=== PATIENT | male | born 1935 | race Caucasian/White ===

== ENCOUNTER → 2016-11-06 | Outpatient (CLI) | payer MEDICARE, OTHER ==
[2016-11-06 17:21] LABS: ANION GAP 12 (5-19); BLOOD UREA NITROGEN 38 mg/dL (7-20); CALCIUM 10.5 mg/dL (8.4-10.2); CARBON DIOXIDE 24 mmol/L (22-30); CHLORIDE 106 mmol/L (98-107); CREATININE RESULT 1.72 mg/dL (0.52-1.25); GLUCOSE 92 mg/dL (75-110); POTASSIUM 4.8 mmol/L (3.6-5.0)
== END ==
LOC: OD 15:50
PROVIDERS: ATTEND Internal Medicine Nephrology
DX: N18.3 Chronic kidney disease, stage 3 (moderate) (principal); E87.5 Hyperkalemia; I50.9 Heart failure, unspecified; E11.9 Type 2 diabetes mellitus without complications
CPT/HCPCS: 36415; 80048

== ENCOUNTER → 2016-11-28 | Outpatient (CLI) | payer MEDICARE, OTHER ==
[2016-11-28 17:35] LABS: ANION GAP 10 (5-19); BLOOD UREA NITROGEN 32 mg/dL (7-20); CALCIUM 10.5 mg/dL (8.4-10.2); CARBON DIOXIDE 25 mmol/L (22-30); CHLORIDE 106 mmol/L (98-107); CREATININE RESULT 1.61 mg/dL (0.52-1.25); GLUCOSE 76 mg/dL (75-110); POTASSIUM 5.3 mmol/L (3.6-5.0); SODIUM 141.3 mmol/L (137-145)
== END ==
LOC: OD 15:52
PROVIDERS: ATTEND Internal Medicine Nephrology
DX: N18.3 Chronic kidney disease, stage 3 (moderate) (principal); E11.9 Type 2 diabetes mellitus without complications; E87.5 Hyperkalemia
CPT/HCPCS: 36415; 80048

== ENCOUNTER → 2017-01-23 | Outpatient (CLI) | payer MEDICARE, OTHER ==
[2017-01-23 16:31] LABS: HEMOGLOBIN 11.8 g/dL (13.5-17.0); HGB HCT DIFFERENCE 0.4; MEAN CORPUSCULAR HGB CONC 33.6 g/dL (32.0-36.0); MEAN CORPUSCULAR VOLUME 95 fl (80-97); RED BLOOD COUNT 3.68 10^6/uL (4.35-5.55); RED CELL DISTRIBUTION WIDTH 15.8 % (11.5-14.0); WHITE BLOOD COUNT 3.9 10^3/uL (4.0-10.5)
[2017-01-23 16:57] LABS: ANION GAP 14 (5-19); BLOOD UREA NITROGEN 38 mg/dL (7-20); CALCIUM 10.2 mg/dL (8.4-10.2); CARBON DIOXIDE 21 mmol/L (22-30); CHLORIDE 105 mmol/L (98-107); CREATININE RESULT 1.43 mg/dL (0.52-1.25); GLUCOSE 203 mg/dL (75-110); POTASSIUM 4.7 mmol/L (3.6-5.0); SODIUM 139.8 mmol/L (137-145)
== END ==
LOC: OD 15:22
PROVIDERS: ATTEND Internal Medicine Nephrology
DX: E11.22 Type 2 diabetes mellitus with diabetic chronic kidney disease (principal); N18.3 Chronic kidney disease, stage 3 (moderate); E87.5 Hyperkalemia
CPT/HCPCS: 36415; 80048; 85027

== ENCOUNTER → 2017-04-24 | Outpatient (CLI) | payer MEDICARE, OTHER ==
[2017-04-24 18:31] LABS: HEMATOCRIT 35.9 % (37.9-51.0); HEMOGLOBIN 11.7 g/dL (13.5-17.0); HGB HCT DIFFERENCE -0.8; MEAN CORPUSCULAR HEMOGLOBIN 31.6 pg (27.0-33.4); MEAN CORPUSCULAR HGB CONC 32.6 g/dL (32.0-36.0); MEAN CORPUSCULAR VOLUME 97 fl (80-97); RED CELL DISTRIBUTION WIDTH 15.2 % (11.5-14.0); WHITE BLOOD COUNT 3.8 10^3/uL (4.0-10.5)
[2017-04-24 18:55] LABS: ANION GAP 13 (5-19); BLOOD UREA NITROGEN 34 mg/dL (7-20); CARBON DIOXIDE 23 mmol/L (22-30); CHLORIDE 105 mmol/L (98-107); CREATININE RESULT 1.48 mg/dL (0.52-1.25); GLUCOSE 94 mg/dL (75-110); POTASSIUM 5.1 mmol/L (3.6-5.0); SODIUM 140.5 mmol/L (137-145)
== END ==
LOC: OD 16:13
PROVIDERS: ATTEND Internal Medicine Nephrology
DX: I50.9 Heart failure, unspecified (principal); E87.5 Hyperkalemia; E11.9 Type 2 diabetes mellitus without complications; I10 Essential (primary) hypertension
CPT/HCPCS: 36415; 80048; 85027

== ENCOUNTER → 2017-08-21 | Outpatient (CLI) | payer MEDICARE, OTHER ==
[2017-08-21 09:22] LABS: HEMATOCRIT 35.9 % (37.9-51.0); HEMOGLOBIN 12.3 g/dL (13.5-17.0); MEAN CORPUSCULAR HEMOGLOBIN 32.1 pg (27.0-33.4); MEAN CORPUSCULAR HGB CONC 34.1 g/dL (32.0-36.0); MEAN CORPUSCULAR VOLUME 94 fl (80-97); RED BLOOD COUNT 3.82 10^6/uL (4.35-5.55); RED CELL DISTRIBUTION WIDTH 15.6 % (11.5-14.0); WHITE BLOOD COUNT 3.1 10^3/uL (4.0-10.5)
[2017-08-21 09:46] LABS: ANION GAP 13 (5-19); BLOOD UREA NITROGEN 27 mg/dL (7-20); CALCIUM 10.2 mg/dL (8.4-10.2); CARBON DIOXIDE 26 mmol/L (22-30); CHLORIDE 105 mmol/L (98-107); CREATININE RESULT 1.38 mg/dL (0.52-1.25); GLUCOSE 170 mg/dL (75-110); POTASSIUM 4.5 mmol/L (3.6-5.0); SODIUM 144.1 mmol/L (137-145)
== END ==
LOC: OD 08:30
PROVIDERS: ATTEND Internal Medicine Nephrology
DX: E11.22 Type 2 diabetes mellitus with diabetic chronic kidney disease (principal); N18.3 Chronic kidney disease, stage 3 (moderate); I50.9 Heart failure, unspecified; E87.5 Hyperkalemia
CPT/HCPCS: 36415; 80048; 83735; 85027

== ENCOUNTER → 2017-10-05 | Outpatient (CLI) | payer MEDICARE, OTHER ==
[2017-10-05 10:30] LABS: HEMATOCRIT 33.5 % (37.9-51.0); HEMOGLOBIN 11.5 g/dL (13.5-17.0); MEAN CORPUSCULAR HEMOGLOBIN 32.3 pg (27.0-33.4); MEAN CORPUSCULAR HGB CONC 34.2 g/dL (32.0-36.0); MEAN CORPUSCULAR VOLUME 94 fl (80-97); RED BLOOD COUNT 3.56 10^6/uL (4.35-5.55); RED CELL DISTRIBUTION WIDTH 15.6 % (11.5-14.0); WHITE BLOOD COUNT 4.7 10^3/uL (4.0-10.5)
[2017-10-05 10:56] LABS: ANION GAP 13 (5-19); BLOOD UREA NITROGEN 32 mg/dL (7-20); CALCIUM 10.7 mg/dL (8.4-10.2); CARBON DIOXIDE 26 mmol/L (22-30); CHLORIDE 106 mmol/L (98-107); CREATININE RESULT 1.48 mg/dL (0.52-1.25); GLUCOSE 103 mg/dL (75-110); POTASSIUM 4.6 mmol/L (3.6-5.0)
== END ==
LOC: OD 08:42
PROVIDERS: ATTEND Internal Medicine Nephrology
DX: I12.9 Hypertensive chronic kidney disease with stage 1 through stage 4 chronic kidney disease, or unspecified chronic kidney disease (principal); N18.3 Chronic kidney disease, stage 3 (moderate); E11.9 Type 2 diabetes mellitus without complications; E87.5 Hyperkalemia
CPT/HCPCS: 36415; 80048; 82533; 83735; 85027

== ENCOUNTER → 2018-01-11 | Outpatient (CLI) | payer MEDICARE, OTHER ==
[2018-01-11 09:09] LABS: HEMATOCRIT 27.5 % (37.9-51.0); HEMOGLOBIN 9.7 g/dL (13.5-17.0); MEAN CORPUSCULAR HEMOGLOBIN 34.3 pg (27.0-33.4); MEAN CORPUSCULAR HGB CONC 35.3 g/dL (32.0-36.0); MEAN CORPUSCULAR VOLUME 97 fl (80-97); PLATELET COUNT 182 10^3/uL (150-450); RED BLOOD COUNT 2.83 10^6/uL (4.35-5.55); RED CELL DISTRIBUTION WIDTH 16.2 % (11.5-14.0); WHITE BLOOD COUNT 3.1 10^3/uL (4.0-10.5)
[2018-01-11 09:30] LABS: ANION GAP 10 (5-19); BLOOD UREA NITROGEN 30 mg/dL (7-20); CALCIUM 10.5 mg/dL (8.4-10.2); CARBON DIOXIDE 26 mmol/L (22-30); CHLORIDE 108 mmol/L (98-107); GLUCOSE 98 mg/dL (75-110); POTASSIUM 4.6 mmol/L (3.6-5.0); SODIUM 144.2 mmol/L (137-145)
== END ==
LOC: OD 08:25
PROVIDERS: ATTEND Internal Medicine Nephrology
DX: E11.22 Type 2 diabetes mellitus with diabetic chronic kidney disease (principal); I12.9 Hypertensive chronic kidney disease with stage 1 through stage 4 chronic kidney disease, or unspecified chronic kidney disease; N18.3 Chronic kidney disease, stage 3 (moderate)
CPT/HCPCS: 36415; 80048; 82024; 82533; 85027

== ENCOUNTER → 2018-01-18 | Outpatient (CLI) | payer MEDICARE, OTHER ==
[2018-01-18 18:29] LABS: APPEARANCE,URINE SLIGHTLY-CLOUDY; BILIRUBIN,URINE NEGATIVE (NEGATIVE); GLUCOSE, URINE 50 mg/dL (NEGATIVE); KETONES,URINE NEGATIVE (NEGATIVE); LEUKOCYTE ESTERASE,URINE SMALL (NEGATIVE); NITRITE,URINE NEGATIVE (NEGATIVE); PROTEIN,URINE 30 mg/dL (NEGATIVE); URINE SPECIFIC GRAVITY 1.019
[2018-01-18 18:32] LABS: COLOR,URINE DARK YELLOW
[2018-01-18 18:32] LABS: HEMATOCRIT 27.2 % (37.9-51.0); HEMOGLOBIN 9.5 g/dL (13.5-17.0); MEAN CORPUSCULAR HEMOGLOBIN 34.3 pg (27.0-33.4); MEAN CORPUSCULAR HGB CONC 34.9 g/dL (32.0-36.0); MEAN CORPUSCULAR VOLUME 98 fl (80-97); PLATELET COUNT 206 10^3/uL (150-450); RED BLOOD COUNT 2.77 10^6/uL (4.35-5.55); RED CELL DISTRIBUTION WIDTH 16.3 % (11.5-14.0); WHITE BLOOD COUNT 2.9 10^3/uL (4.0-10.5)
[2018-01-18 18:52] LABS: IRON(TIBC) 79.2 ug/dL (49-181)
[2018-01-20 16:39] LABS: A/G RATIO 0.9 (0.7-1.7); ALBUMIN 2 3.4 g/dL (2.9-4.4); ALPHA-2-GLOBULIN 2 0.4 g/dL (0.4-1.0); BETA GLOBULINS 1.2 g/dL (0.7-1.3); GLOBULIN TOTAL 3.8 g/dL (2.2-3.9); MONOCLONAL SPIKE Not Observed g/dL (Not Observed); PROTEIN TOTAL SERUM 7.2 g/dL (6.0-8.5)
== END ==
LOC: OD 16:39
PROVIDERS: ATTEND Internal Medicine Nephrology
DX: N18.3 Chronic kidney disease, stage 3 (moderate) (principal); D64.9 Anemia, unspecified; I50.9 Heart failure, unspecified
CPT/HCPCS: 36415; 81001; 82728; 83540; 83550; 84165; 84443; 85027

== ENCOUNTER → 2018-01-22 | Outpatient (CLI) | payer MEDICARE, OTHER ==
[2018-01-22 19:06] LABS: HEMATOCRIT 26.6 % (37.9-51.0); HEMOGLOBIN 9.2 g/dL (13.5-17.0); MEAN CORPUSCULAR HGB CONC 34.7 g/dL (32.0-36.0); MEAN CORPUSCULAR VOLUME 98 fl (80-97); PLATELET COUNT 183 10^3/uL (150-450); RED BLOOD COUNT 2.71 10^6/uL (4.35-5.55); RED CELL DISTRIBUTION WIDTH 16.3 % (11.5-14.0); WHITE BLOOD COUNT 2.9 10^3/uL (4.0-10.5)
[2018-01-22 19:10] LABS: ANION GAP 8 (5-19); BLOOD UREA NITROGEN 28 mg/dL (7-20); CALCIUM 10.1 mg/dL (8.4-10.2); CARBON DIOXIDE 25 mmol/L (22-30); CHLORIDE 107 mmol/L (98-107); GLUCOSE 169 mg/dL (75-110); POTASSIUM 4.2 mmol/L (3.6-5.0); SODIUM 139.6 mmol/L (137-145)
== END ==
LOC: OD 17:16
PROVIDERS: ATTEND Internal Medicine Nephrology
DX: N18.3 Chronic kidney disease, stage 3 (moderate) (principal); D64.9 Anemia, unspecified; I50.9 Heart failure, unspecified; E87.5 Hyperkalemia
CPT/HCPCS: 36415; 80048; 85027

== ENCOUNTER → 2018-02-05 | Outpatient (CLI) | payer MEDICARE, OTHER ==
[2018-02-05 18:03] LABS: HEMATOCRIT 27.1 % (37.9-51.0); HEMOGLOBIN 9.4 g/dL (13.5-17.0); MEAN CORPUSCULAR HEMOGLOBIN 33.8 pg (27.0-33.4); MEAN CORPUSCULAR HGB CONC 34.8 g/dL (32.0-36.0); MEAN CORPUSCULAR VOLUME 97 fl (80-97); PLATELET COUNT 173 10^3/uL (150-450); RED CELL DISTRIBUTION WIDTH 16.2 % (11.5-14.0); WHITE BLOOD COUNT 3.6 10^3/uL (4.0-10.5)
== END ==
LOC: OD 17:27
PROVIDERS: ATTEND Internal Medicine Nephrology
DX: D64.9 Anemia, unspecified (principal); N18.3 Chronic kidney disease, stage 3 (moderate)
CPT/HCPCS: 36415; 85027

== ENCOUNTER 2018-02-07 10:11 | Inpatient (IN) | payer MEDICARE, OTHER ==
--- NOTE | 2018-02-07 10:36 | ER Document Report ---
ED General - General Chief Complaint: Leg Swelling Stated Complaint: ALTERED MENTAL STATUS Time Seen by Provider: 02/07/18 10:15 Mode of Arrival: Medic Information source: Patient, Relative Cannot obtain history due to: Dementia TRAVEL OUTSIDE OF THE [place] IN LAST 30 DAYS: No - HPI Onset: Yesterday Onset/Duration: Gradual Quality of pain: No pain Associated symptoms: Productive cough, Other - DEPENDENT EDEMA Exacerbated by: Denies Relieved by: Denies Similar symptoms previously: Yes - NOT RECENT Recently seen / treated by doctor: No Notes: Family apparently found patient on the floor beside his recliner chair this morning, somewhat confused. Patient frequently falls, often sleeps in the recliner chair to reduce incidence of falling. - Related Data Allergies/Adverse Reactions: Lauirsh-Lov-Rtf Reductase Inhibitor Allergy (Verified 02/07/18 10:49) Past Medical History - General Information source: Patient, Relative Cannot obtain history due to: Dementia - Social History Smoking Status: Unknown if Ever Smoked Cigarette use (# per day): No Chew tobacco use (# tins/day): No Frequency of alcohol use: None Drug Abuse: None Lives with: Family Family History: Reviewed & Not Pertinent - Past Medical History Cardiac Medical History: Reports: Hx Congestive Heart Failure, Hx Coronary Artery Disease, Hx Hypercholesterolemia, Hx Hypertension Denies: Hx Heart Attack Pulmonary Medical History: Reports: Hx COPD Denies: Hx Asthma, Hx Bronchitis, Hx Pneumonia Neurological Medical History: Reports: Other - PARKINSON'S DIS.. 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 Denies: Hx Hepatitis, Hx Hiatal Hernia, Hx Ulcer Musculoskeltal Medical History: Reports Hx Arthritis Psychiatric Medical History: Reports: Hx Dementia Denies: Hx Depression Infectious Medical History: Denies: Hx Hepatitis Past Surgical History: Denies: Hx Open Heart Surgery, Hx Pacemaker - Immunizations Hx Diphtheria, Pertussis, Tetanus Vaccination: Yes Hx Pneumococcal Vaccination: 11/02/04 Review of Systems - Review of Systems Constitutional: Weakness EENT: No symptoms reported Cardiovascular: No symptoms reported, Edema Respiratory: See HPI Gastrointestinal: No symptoms reported Genitourinary: No symptoms reported Musculoskeletal: No symptoms reported Skin: No symptoms reported Neurological/Psychological: No symptoms reported Physical Exam - Vital signs Vitals: Resp BP Pulse Ox 19 142/84 H 95 02/07/18 10:16 02/07/18 10:16 02/07/18 10:16 Interpretation: Tachycardic, Febrile - General General appearance: Appears well, Alert In distress: None - HEENT Head: Normocephalic Eyes: Normal Conjunctiva: Normal Ears: Normal Nasal: Normal Mouth/Lips: Normal Mucous membranes: Dry Pharynx: Normal Neck: Normal, Supple - Respiratory Respiratory status: No respiratory distress - Cardiovascular Rhythm: Regular Heart sounds: Normal auscultation Murmur: No - Abdominal Inspection: Normal Distension: No distension Bowel sounds: Normal - Extremities General upper extremity: Normal inspection General lower extremity: Edema - 3+, BILAT.. No: Normal inspection - Neurological Neuro grossly intact: Yes Cognition: Normal Orientation: AAOx4 - Psychological Associated symptoms: Normal affect, Normal mood - Skin Skin Temperature: Warm Skin Moisture: Dry Skin Color: Normal Skin Turgor: Elastic Course - Vital Signs Vital signs: Temp Pulse Resp BP Pulse Ox 100.6 F H 19 142/84 H 95 02/07/18 10:29 02/07/18 10:16 02/07/18 10:16 02/07/18 10:16 - Laboratory Result Diagrams: 02/07/18 10:18 02/07/18 10:18 Laboratory results interpreted by me: 02/07/18 02/07/18 02/07/18 10:18 10:18 10:18 RBC 2.81 L Hgb 9.6 L Hct 27.6 L MCV 98 H MCH 34.0 H RDW 16.1 H Seg Neutrophils % 86.8 H Lymphocytes % 7.4 L Carbon Dioxide 21 L BUN 23 H Glucose 183 H Total Bilirubin 2.1 H Direct Bilirubin 0.8 H NT-Pro-B Natriuret Pep 524 H Urine Glucose (UA) Urine Ketones Urine Blood Urine Urobilinogen Ur Leukocyte Esterase 02/07/18 10:45 RBC Hgb Hct MCV MCH RDW Seg Neutrophils % Lymphocytes % Carbon Dioxide BUN Glucose Total Bilirubin Direct Bilirubin NT-Pro-B Natriuret Pep Urine Glucose (UA) 150 H Urine Ketones TRACE H Urine Blood SMALL H Urine Urobilinogen 4.0 H Ur Leukocyte Esterase TRACE H - EKG Interpretation by Oh EKG shows normal: Sinus rhythm, Pruden, Intervals, QRS Complexes, ST-T Waves Rate: Tachycardia - Consults DR. HERRING Time consulted: 11:54 Consulted provider: will come to ER Discharge - Discharge Clinical Impression: Parkinson disease, Confusion Pneumonia Qualifiers: Pneumonia type: due to unspecified organism Laterality: left Lung location: lower lobe of lung Qualified Code(s): J18.1 - Lobar pneumonia, unspecified organism Condition: Stable Disposition: ADMITTED INPATIENT Admitting Provider: Hospitalist Unit Admitted: Telemetry
[2018-02-07 10:40] LABS: ABSOLUTE LYMPHOCYTES (AUTO) 0.5 10^3/uL (0.5-4.7); ABSOLUTE MONOCYTES (AUTO) 0.4 10^3/uL (0.1-1.4); BASOPHILS % (AUTO) 0.3 % (0-2); EOSINOPHILS % (AUTO) 0.3 % (0-6); HEMATOCRIT 27.6 % (37.9-51.0); HEMOGLOBIN 9.6 g/dL (13.5-17.0); LYMPHOCYTES % (AUTO) 7.4 % (13-45); MEAN CORPUSCULAR HGB CONC 34.7 g/dL (32.0-36.0); MEAN CORPUSCULAR VOLUME 98 fl (80-97); MONOCYTES % (AUTO) 5.2 % (3-13); PLATELET COUNT 179 10^3/uL (150-450); RED BLOOD COUNT 2.81 10^6/uL (4.35-5.55); RED CELL DISTRIBUTION WIDTH 16.1 % (11.5-14.0); SEGMENTED NEUTROPHILS % (AUTO) 86.8 % (42-78); TOTAL CELLS COUNTED % (AUTO) 100 %; WHITE BLOOD COUNT 6.9 10^3/uL (4.0-10.5)
[2018-02-07 10:56] LABS: ALANINE AMINOTRANSFERASE 29 U/L (21-72); ALBUMIN 3.6 g/dL (3.5-5.0); ALKALINE PHOSPHATASE 63 U/L (38-126); ANION GAP 13 (5-19); ASPARTATE AMINO TRANSFERASE 55 U/L (17-59); BILIRUBIN,DIRECT 0.8 mg/dL (0.0-0.4); BILIRUBIN,TOTAL 2.1 mg/dL (0.2-1.3); BLOOD UREA NITROGEN 23 mg/dL (7-20); CARBON DIOXIDE 21 mmol/L (22-30); CHLORIDE 106 mmol/L (98-107); CREATINE KINASE 133 U/L (55-170); GLUCOSE 183 mg/dL (75-110); POTASSIUM 4.1 mmol/L (3.6-5.0); SODIUM 139.9 mmol/L (137-145); TOTAL PROTEIN 7.8 g/dL (6.3-8.2)
[2018-02-07 10:58] LABS: AMORPHOUS SEDIMENT,URINE TRACE /HPF; APPEARANCE,URINE SLIGHTLY-CLOUDY; BILIRUBIN,URINE NEGATIVE (NEGATIVE); COLOR,URINE YELLOW; GLUCOSE, URINE 150 mg/dL (NEGATIVE); KETONES,URINE TRACE mg/dL (NEGATIVE); LEUKOCYTE ESTERASE,URINE TRACE (NEGATIVE); NITRITE,URINE NEGATIVE (NEGATIVE); PROTEIN,URINE NEGATIVE (NEGATIVE); URINE SPECIFIC GRAVITY 1.017
[2018-02-07 11:07] LABS: CREATINE KINASE MB 0.47 ng/mL (<4.55); NT PRO BNP 524 pg/mL (<450); TROPONIN I < 0.012 ng/mL
--- NOTE | 2018-02-07 11:15 | RADIOLOGY REPORT (SQ) ---
EXAM DESCRIPTION: CHEST 2 VIEWS COMPLETED DATE/TIME: 02/07/2018 10:58 am REASON FOR STUDY: COUGH, FEVER COMPARISON: 08/10/2014 EXAM PARAMETERS: NUMBER OF VIEWS: two views TECHNIQUE: Digital Frontal and Lateral radiographic views of the chest acquired. RADIATION DOSE: NA LIMITATIONS: none FINDINGS: LUNGS AND PLEURA: Subsegmental airspace disease left costophrenic angle. Right lung is cl ear. MEDIASTINUM AND HILAR STRUCTURES: Stable. HEART AND VASCULAR STRUCTURES: Stable heart size. BONES: No acute findings. HARDWARE: None in the chest. OTHER: No other significant finding. IMPRESSION: Atelectasis or early pneumonia left lower lobe. TECHNICAL DOCUMENTATION: JOB ID: [id number] [employer]- All Rights Reserved Reading location - IP/workstation name: [email or web address]
--- NOTE | 2018-02-07 11:38 | RADIOLOGY REPORT (SQ) ---
EXAM DESCRIPTION: CT HEAD WITHOUT COMPLETED DATE/TIME: 02/07/2018 11:28 am REASON FOR STUDY: FALL, CONFUSION COMPARISON: None. TECHNIQUE: Axial images acquired through the brain without intravenous contrast. Images reviewed wi th bone, brain and subdural windows. Additional sagittal and coronal reconstructions were generated. Images stored on PACS. All CT scanners at this facility use dose modulation, iterative reconstruction, and/or weight based d osing when appropriate to reduce radiation dose to as low as reasonably achievable (ALARA). [facility]: Dose Right [facility]: CareDose [facility]: Dose Right [facility]: Teradose 4D [facility]: Smart Local Motion RADIATION DOSE: CT Rad equipment meets quality standard of care and radiation dose reduction techniq ues were employed. CTDIvol: 48.6 mGy. DLP: 904 mGy-cm.mGy. LIMITATIONS: None. FINDINGS: VENTRICLES: Prominent. CEREBRUM: No masses. No hemorrhage. No midline shift. Areas of low density in the white matter mos t likely due to chronic micro-vascular ischemic change. No evidence for acute infarction. CEREBELLUM: No masses. No hemorrhage. No alteration of density. No evidence for acute infarction. EXTRAAXIAL SPACES: Age-related involutional change. No fluid collections. No masses. ORBITS AND GLOBE: No intra- or extraconal masses. Normal contour of globe without masses. CALVARIUM: No fracture. PARANASAL SINUSES: No fluid or mucosal thickening. SOFT TISSUES: No mass or hematoma. OTHER: No other significant finding. IMPRESSION: CHRONIC CHANGES OF ATROPHY AND MICROVASCULAR ISCHEMIA. NO ACUTE PROCESS. EVIDENCE OF ACUTE STROKE: NO. TECHNICAL DOCUMENTATION: JOB ID: [id number] Quality ID # [id number]: Final reports with documentation of one or more dose reduction techniques (e.g., Au tomated exposure control, adjustment of the mA and/or kV according to patient size, use of iterative reconstruction technique) 2010 [employer]- All Rights Reserved Reading location - IP/workstation name: [email or web address]
[2018-02-07] MEDS ORDERED: CEFTRIAXONE 1 GM/D5W RTU 1 GM/50 ML RTUPB IV ONE (11:39)
[2018-02-07] MEDS ORDERED: CEFTRIAXONE INJ 1000 MG VIAL ONE (11:49)
[2018-02-07] MEDS ORDERED: NORMAL SALINE 1000 ML 500 ML IV ONE (11:57)
[2018-02-07] MEDS ORDERED: MAGNESIUM HYDROXIDE SUSP 30 ML UDCUP PO PRN (12:35)
[2018-02-07] MEDS ORDERED: ONDANSETRON HCL INJ/PF 4 MG/2 ML SDV IV PRN (12:35)
[2018-02-07] MEDS ORDERED: ACETAMINOPHEN 325 MG TABLET PO PRN (12:35)
[2018-02-07] MEDS ORDERED: GLUCAGON,HUMAN RECOMB 1 MG INJ IM PRN (12:59)
[2018-02-07] MEDS ORDERED: INSULIN LISPRO 100 UNIT/ML 3 ML VIAL SUBCUT PRN (12:59)
[2018-02-07] MEDS ORDERED: DEXTROSE 50%-WATER 25 GM/50 ML DISP.SYRIN IV PRN ×2 (12:59)
[2018-02-07] MEDS ORDERED: DEXTROSE 40% GEL 15 GM TUBE PO PRN ×2 (12:59)
--- NOTE | 2018-02-07 13:03 | PDOC H&P ---
History of Present Illness History of Present Illness: LEN CHOW is a 82 year old male moderate to severe Parkinson's disease who presented to the emergency department with weakness and mild confusion. He was brought in by EMS. His daughter provided a history. She says that he seemed pale and more unsteady yesterday. He mentioned to her that his knee hurt yesterday. He has a lift chair at home that he frequently sits in. He was found this morning on his knees in front of the chair in the lifted position. It appeared as if he slid out on to the floor onto his knees. He was unable to get off the floor. At the same time, he told his daughter that he was in his office, but actually they were in the living room. At that time, he asked his daughter if "someone" moved his glucometer from his office. Again he was in the living room. The glucometer was in the kitchen, where he left the evening before. He has a chronic cough. He frequently clears his throat. The cough is essentially dry. He reports daughter did not report fevers, chills, chest pain, or shortness of breath. He and his live with his daughter, who is a hospice nurse. Past Medical History Cardiac Medical History: Reports: Congestive Heart Failure, Coronary Artery Disease, Hyperlipidema, Hypertension Denies: Myocardial Infarction Pulmonary Medical History: Reports: Chronic Obstructive Pulmonary Disease (COPD) Denies: Asthma, Bronchitis, Pneumonia Neurological Medical History: Reports: Other - PARKINSON'S DIS. Denies: Seizures Endocrine Medical History: Reports: Diabetes Mellitus Type 2 - non insulin dependent Renal/ Medical History: Reports: Chronic Kidney Disease Malignancy Medical History: Reports: None GI Medical History: Reports: Gastroesophageal Reflux Disease Denies: Hepatitis, Hiatal Hernia Musculoskeltal Medical History: Reports: Arthritis Psychiatric Medical History: Denies: Depression Hematology: Denies: Anemia, Sickle Cell Disease Past Surgical History Past Surgical History: Denies: Pacemaker Social History Information Source: Relative Lives with: Family Smoking Status: Unknown if Ever Smoked Frequency of Alcohol Use: Rare Hx Recreational Drug Use: No Hx Prescription Drug Abuse: No - Advance Directive Resuscitation Status: Full Code Family History Family History: Reviewed & Not Pertinent Parental Family History Reviewed: No Children Family History Reviewed: No Sibling(s) Family History Reviewed.: No Medication/Allergy Home Medications: Aspirin [Aspirin 325 mg Tablet] 325 mg PO DAILY 01/26/13 Fenofibrate Nanocrystallized [Tricor 145 mg Tablet] 145 mg PO DAILY 01/26/13 Brimonidine Tartrate [Alphagan 0.2% Oph Soln 5 ml] 1 drop OU TID 10/17/13 Dexlansoprazole [Dexilant 60 mg Capsule] 60 mg PO DAILY 10/17/13 Dorzolamide HCl [Trusopt] 1 drop OU BID 10/17/13 Fluticasone Propionate [Flonase Nasal Spring 50 Mcg/Spring 16 gm] 1 spray NASL DAILY 10/17/13 [place]-3 Fatty Acids/Fish Oil [Fish Oil Softgel] 1 each PO DAILY 10/17/13 Carbidopa/Levodopa [Sinemet 25-100 mg Tablet] 1 tab PO QID 02/07/18 Cholecalciferol (Vitamin D3) [Vitamin D3 1000 Unit Tablet] 1,000 unit PO DAILY 02/07/18 Fenofibrate 150 mg PO DAILY 02/07/18 Finasteride [Finasteride] 5 mg PO DAILY 02/07/18 Insulin Regular, Human [Novolin R (Reg) Insulin 100 unit/mL] 0 unit SUBCUT .SLD SCALE 02/07/18 Midodrine HCl 10 mg PO TID 02/07/18 Tamsulosin HCl [Flomax] 0.4 mg PO DAILY 02/07/18 Allergies/Adverse Reactions: Gpudknx-Pva-Ysv Reductase Inhibitor Allergy (Verified 02/07/18 10:49) Review of Systems Constitutional: PRESENT: weakness. ABSENT: chills, fever(s), night sweats Cardiovascular: ABSENT: chest pain, dyspnea on exertion, edema, orthropnea, palpitations Respiratory: PRESENT: cough Gastrointestinal: ABSENT: abdominal pain, constipation, diarrhea, hematemesis, hematochezia, nausea, vomiting Neurological: PRESENT: abnormal gait, confusion. ABSENT: abnormal speech, dizziness, focal weakness, syncope Physical Exam Vital Signs: Temp Pulse Resp BP Pulse Ox 100.6 F H 19 142/84 H 95 02/07/18 10:29 02/07/18 10:16 02/07/18 10:16 02/07/18 10:16 Intake & Output 02/06/18 02/07/18 02/08/18 06:59 06:59 06:59 Weight 72.5 kg General appearance: PRESENT: no acute distress, well-developed, well-nourished Head exam: PRESENT: atraumatic, normocephalic Eye exam: PRESENT: EOMI, PERRLA Neck exam: ABSENT: carotid bruit, JVD, lymphadenopathy, thyromegaly Respiratory exam: PRESENT: decreased breath sounds - At bases, unlabored Cardiovascular exam: PRESENT: RRR. ABSENT: diastolic murmur, rubs, systolic murmur GI/Abdominal exam: PRESENT: normal bowel sounds, soft. ABSENT: distended, guarding, mass, organolmegaly, rebound, tenderness Extremities exam: PRESENT: +2 edema - Feet and ankles Musculoskeletal exam: PRESENT: normal inspection Skin exam: PRESENT: dry, intact, warm. ABSENT: cyanosis, rash Results Laboratory Results: 02/07/18 10:18 02/07/18 10:18 02/07/18 02/07/18 02/07/18 10:18 10:18 10:18 WBC 6.9 RBC 2.81 L Hgb 9.6 L Hct 27.6 L MCV 98 H MCH 34.0 H MCHC 34.7 RDW 16.1 H Plt Count 179 Seg Neutrophils % 86.8 H Lymphocytes % 7.4 L Monocytes % 5.2 Eosinophils % 0.3 Basophils % 0.3 Absolute Neutrophils 6.0 Absolute Lymphocytes 0.5 Absolute Monocytes 0.4 Absolute Eosinophils 0.0 Absolute Basophils 0.0 Sodium 139.9 Potassium 4.1 Chloride 106 Carbon Dioxide 21 L Anion Gap 13 BUN 23 H Creatinine 1.12 Est GFR ( Amer) > 60 Est GFR (Non-Af Amer) > 60 Glucose 183 H Lactic Acid 1.3 Calcium 10.0 Total Bilirubin 2.1 H AST 55 ALT 29 Alkaline Phosphatase 63 Total Protein 7.8 Albumin 3.6 Urine Color Urine Appearance Urine pH Ur Specific [place] Urine Protein Urine Glucose (UA) Urine Ketones Urine Blood Urine Nitrite Ur Leukocyte Esterase Urine WBC (Auto) Urine RBC (Auto) 02/07/18 10:45 WBC RBC Hgb Hct MCV MCH MCHC RDW Plt Count Seg Neutrophils % Lymphocytes % Monocytes % Eosinophils % Basophils % Absolute Neutrophils Absolute Lymphocytes Absolute Monocytes Absolute Eosinophils Absolute Basophils Sodium Potassium Chloride Carbon Dioxide Anion Gap BUN Creatinine Est GFR ( Amer) Est GFR (Non-Af Amer) Glucose Lactic Acid Calcium Total Bilirubin AST ALT Alkaline Phosphatase Total Protein Albumin Urine Color YELLOW Urine Appearance SLIGHTLY-CLOUDY Urine pH 6.0 Ur Specific [place] 1.017 Urine Protein NEGATIVE Urine Glucose (UA) 150 H Urine Ketones TRACE H Urine Blood SMALL H Urine Nitrite NEGATIVE Ur Leukocyte Esterase TRACE H Urine WBC (Auto) 9 Urine RBC (Auto) 7 02/07/18 02/07/18 10:18 10:18 Creatine Kinase 133 CK-MB (CK-2) 0.47 Troponin I < 0.012 NT-Pro-B Natriuret Pep 524 H Impressions: Chest X-Ray 02/07/18 10:24 IMPRESSION: Atelectasis or early pneumonia left lower lobe. Head CT 02/07/18 11:02 IMPRESSION: CHRONIC CHANGES OF ATROPHY AND MICROVASCULAR ISCHEMIA. NO ACUTE PROCESS. EVIDENCE OF ACUTE STROKE: NO. Assessment & Plan - Diagnosis (1) Leg swelling Is this a current diagnosis for this admission?: Yes Plan: His daughter notices over the past several days. I suspect it is mainly due to dependence of his lower extremities. However, to be safe, I will order up Doppler ultrasound of his lower legs to rule out DVT. (2) Confusion Is this a current diagnosis for this admission?: Yes Plan: Multifactorial: Infection, possible TIA, or progression of Parkinson disease. Continue antibiotics. MRI brain ordered. PT evaluation ordered. (3) Parkinson disease Is this a current diagnosis for this admission?: Yes Plan: Stable. He needs a PT evaluation. (4) Pneumonia Qualifiers: Pneumonia type: due to unspecified organism Laterality: left Lung location: lower lobe of lung Qualified Code(s): J18.1 - Lobar pneumonia, unspecified organism Is this a current diagnosis for this admission?: Yes Plan: Continue antibiotics. I started him on doxycycline in addition to ceftriaxone. Speech therapy evaluation to rule out aspiration. (5) Type 2 diabetes mellitus Qualifiers: Diabetes mellitus senior living insulin use: without extermination inspector use Diabetes mellitus complication status: without complication Qualified Code(s): E11.9 - Type 2 diabetes mellitus without complications Is this a current diagnosis for this admission?: Yes Plan: Suboptimal glycemic control. However, adequate for hospitalization. Start sliding scale. (6) Anemia Qualifiers: Anemia type: unspecified type Qualified Code(s): D64.9 - Anemia, unspecified Is this a current diagnosis for this admission?: Yes Plan: Likely due to chronic disease. Continue to monitor. - Time Time Spent: 50 to 70 Minutes Medications reviewed and adjusted accordingly: Yes Anticipated discharge: Home Within: within 72 hours - Inpatient Certification Based on my medical assessment, after consideration of the patient's comorbidities, presenting symptoms, or acuity I expect that the services needed warrant INPATIENT care.: Yes I certify that my determination is in accordance with my understanding of Medicare's requirements for reasonable and necessary INPATIENT services [42 CFR 412.3e].: Yes Medical Necessity: Significant Comorbidiites Make Outpatient Treatment Too Risky , Need Close Monitoring Due to Risk of Patient Decompensation
[2018-02-07] MEDS ORDERED: DOXYCYCLINE HYCLATE 100 MG TABLET PO ONE (13:45)
--- NOTE | 2018-02-07 13:45 | RADIOLOGY REPORT (SQ) ---
EXAM DESCRIPTION: MRI HEAD WITHOUT COMPLETED DATE/TIME: 02/07/2018 1:35 pm REASON FOR STUDY: weakness and confusion COMPARISON: 12/20/2012 TECHNIQUE: Multiplanar imaging includes non-contrasted T1, T2, FLAIR, and diffusion with ADC map seq uences. Images stored on PACS. LIMITATIONS: None. FINDINGS: ANATOMY: No anomalies. Normal vascular flow voids. Pituitary fossa normal. CSF SPACES: Atrophy induced prominence of ventricles and CSF spaces. CEREBRUM: High signal intensity lesions scattered throughout the white matter on FLAIR imaging with d istribution suggesting micro-vascular ischemic changes. No evidence of hemorrhage, mass, or extraaxi al fluid collection. POSTERIOR FOSSA: No signal alteration. No hemorrhage. No edema, masses or mass effect. Internal beba tory canals, cerebello-pontine angles, mastoids normal. DIFFUSION IMAGING: Negative for acute or sub-acute infarction. ORBITS: No masses. Globes normal. PARANASAL SINUSES: No fluid levels. Mucosa normal. OTHER: No other significant finding. IMPRESSION: No acute abnormality in the brain. EVIDENCE OF ACUTE STROKE: NO. TECHNICAL DOCUMENTATION: JOB ID: [id number] [employer]- All Rights Reserved Reading location - IP/workstation name: [email or web address]
[2018-02-07] MEDS ORDERED: ENOXAPARIN SODIUM INJ 40 MG/0.4 ML DISP.SYRIN SUBCUT ONE (14:00)
--- NOTE | 2018-02-07 16:42 | EKG REPORT ---
SEVERITY:- OTHERWISE NORMAL ECG - SINUS TACHYCARDIA : Confirmed by: Victor Manuel Silverman 07-Feb-2018 16:41:53
[2018-02-07] MEDS: DOXYCYCLINE HYCLATE 100 MG TABLET PO SCH (21:44)
[2018-02-08 05:58] LABS: HEMATOCRIT 24.4 % (37.9-51.0); HEMOGLOBIN 8.5 g/dL (13.5-17.0); MEAN CORPUSCULAR HEMOGLOBIN 33.6 pg (27.0-33.4); MEAN CORPUSCULAR HGB CONC 34.7 g/dL (32.0-36.0); MEAN CORPUSCULAR VOLUME 97 fl (80-97); PLATELET COUNT 156 10^3/uL (150-450); RED BLOOD COUNT 2.52 10^6/uL (4.35-5.55); RED CELL DISTRIBUTION WIDTH 16.1 % (11.5-14.0); WHITE BLOOD COUNT 5.3 10^3/uL (4.0-10.5)
[2018-02-08 06:30] LABS: ANION GAP 6 (5-19); BLOOD UREA NITROGEN 21 mg/dL (7-20); CALCIUM 9.7 mg/dL (8.4-10.2); CARBON DIOXIDE 24 mmol/L (22-30); CHLORIDE 108 mmol/L (98-107); GLUCOSE 132 mg/dL (75-110); PHOSPHORUS 2.3 mg/dL (2.5-4.5); POTASSIUM 3.7 mmol/L (3.6-5.0); SODIUM 138.2 mmol/L (137-145)
[2018-02-08] MEDS ORDERED: CEFTRIAXONE 1 GM/D5W RTU 1 GM/50 ML RTUPB IV SCH (10:00)
--- NOTE | 2018-02-08 10:20 | RADIOLOGY REPORT (SQ) ---
EXAM DESCRIPTION: VENOUS BILATERAL LOWER COMPLETED DATE/TIME: 02/08/2018 10:12 am REASON FOR STUDY: swelling COMPARISON: 10/18/2013 TECHNIQUE: Dynamic and static christianson scale and color images acquired of both lower extremity venous sy stems. Selected spectral images acquired with additional compression and augmentation maneuvers. Imag es stored on PACS. LIMITATIONS: None. FINDINGS: RIGHT LEG COMMON FEMORAL AND FEMORAL: Normal phasicity, compression and augmentation. No visualized echogenic m aterial on christianson scale. No defects on color images. POPLITEAL: Normal compression and augmentation. No visualized echogenic material on christianson scale. No de fects on color images. CALF VESSELS: Normal compression and augmentation. No visualized echogenic material on christianson scale. No defects on color image. GSV AND SSV: Normal compression. No visualized echogenic material on christianson scale. No defects on color images. ANY DEEP VENOUS INSUFFICIENCY: Not evaluated. ANY EVIDENCE OF POPLITEAL CYST: No. OTHER: No other significant finding. LEFT LEG COMMON FEMORAL AND FEMORAL: Normal phasicity, compression and augmentation. No visualized echogenic m aterial on christianson scale. No defects on color images. POPLITEAL: Normal compression and augmentation. No visualized echogenic material on christianson scale. No de fects on color images. CALF VESSELS: Normal compression and augmentation. No visualized echogenic material on christianson scale. No defects on color images. GSV AND SSV: Normal compression. No visualized echogenic material on christianson scale. No defects on color images. ANY DEEP VENOUS INSUFFICIENCY: Not evaluated. ANY EVIDENCE POPLITEAL CYST: There is a popliteal cyst measured 4.7 x 1.9 x 2.9 cm. OTHER: No other significant finding. IMPRESSION: 1. No evidence of DVT or SVT in either leg. 2. Left-sided popliteal cyst. TECHNICAL DOCUMENTATION: JOB ID: [id number] [employer]- All Rights Reserved Reading location - IP/workstation name: [email or web address]
[2018-02-08] MEDS: CEFTRIAXONE SODIUM 1,000 MG in NORMAL SALINE 100 ML IV SCH (11:57)
[2018-02-08] MEDS: ENOXAPARIN SODIUM INJ 40 MG/0.4 ML DISP.SYRIN SUBCUT SCH (11:59)
[2018-02-08] MEDS: DOCUSATE SODIUM 100 MG CAPSULE PO SCH (12:00)
[2018-02-08] MEDS: DOXYCYCLINE HYCLATE 100 MG TABLET PO SCH (12:00)
[2018-02-08] MEDS ORDERED: IPRATROPIUM/ALBUTEROL 0.5-2.5 MG/3 ML AMPUL NEB PRN (12:19)
--- NOTE | 2018-02-08 12:56 | PDOC PROGRESS REPORT ---
Subjective Progress Note for:: 02/08/18 Subjective:: LEN CHOW is a 82 year old male moderate to severe Parkinson's disease who presented to the emergency department with weakness and mild confusion. He was brought in by EMS. His daughter provided a history. She says that he seemed pale and more unsteady yesterday. He mentioned to her that his knee hurt yesterday. He has a lift chair at home that he frequently sits in. He was found this morning on his knees in front of the chair in the lifted position. It appeared as if he slid out on to the floor onto his knees. He was unable to get off the floor. In the ED patient was diagnosed with pneumonia and subsequently admitted on the hospitalist service 02/08 Patient who is currently treated for pneumonia with ceftriaxone and Zithromax IV He has not been febrile He does not have severe respiratory distress and or hypoxemia The patient was noted to have severe dysphasia ; he sounds extremely congested as if he indeed is aspirating; Patient was evaluated by speech; it was felt that it would be safer to keep him n.p.o. Patient will be scheduled cookie swallow in a.m. Reason For Visit: PNEUMONIA Physical Exam Vital Signs: Temp Pulse Resp BP Pulse Ox 98.9 F 81 16 137/79 H 99 02/08/18 07:38 02/08/18 07:38 02/08/18 07:38 02/08/18 07:38 02/08/18 07:38 Intake & Output 02/07/18 02/08/18 02/09/18 00:59 00:59 00:59 Intake Total 440 382 Output Total 700 Balance 440 -318 Weight 70 kg 70.4 kg General appearance: PRESENT: no acute distress, other - Looks chronically ill pale Head exam: PRESENT: atraumatic, normocephalic Eye exam: PRESENT: conjunctiva pink, EOMI, PERRLA. ABSENT: scleral icterus Neck exam: ABSENT: carotid bruit, JVD, lymphadenopathy, thyromegaly Respiratory exam: PRESENT: rhonchi - Bilaterally, wheezes. ABSENT: accessory muscle use Cardiovascular exam: PRESENT: RRR. ABSENT: diastolic murmur, rubs, systolic murmur Pulses: PRESENT: normal dorsalis pedis pul GI/Abdominal exam: PRESENT: normal bowel sounds, soft. ABSENT: distended, guarding, mass, organolmegaly, rebound, tenderness Extremities exam: PRESENT: full ROM. ABSENT: calf tenderness, clubbing, pedal edema Neurological exam: PRESENT: awake, CN II-XII grossly intact Results Laboratory Results: 02/08/18 05:46 02/08/18 05:46 02/08/18 02/08/18 02/08/18 05:46 05:46 05:46 WBC 5.3 RBC 2.52 L Hgb 8.5 L Hct 24.4 L MCV 97 MCH 33.6 H MCHC 34.7 RDW 16.1 H Plt Count 156 Sodium 138.2 Potassium 3.7 Chloride 108 H Carbon Dioxide 24 Anion Gap 6 BUN 21 H Creatinine 1.01 Est GFR ( Amer) > 60 Est GFR (Non-Af Amer) > 60 Glucose 132 H Calcium 9.7 Phosphorus 2.3 L Magnesium 1.7 TSH 2.16 Impressions: Head MRI 02/07/18 00:00 IMPRESSION: No acute abnormality in the brain. EVIDENCE OF ACUTE STROKE: NO. Chest X-Ray 02/07/18 10:24 IMPRESSION: Atelectasis or early pneumonia left lower lobe. Head CT 02/07/18 11:02 IMPRESSION: CHRONIC CHANGES OF ATROPHY AND MICROVASCULAR ISCHEMIA. NO ACUTE PROCESS. EVIDENCE OF ACUTE STROKE: NO. Venous Doppler Study 02/08/18 00:00 IMPRESSION: 1. No evidence of DVT or SVT in either leg. 2. Left-sided popliteal cyst. Assessment & Plan - Diagnosis (1) Anemia Qualifiers: Anemia type: unspecified type Qualified Code(s): D64.9 - Anemia, unspecified Is this a current diagnosis for this admission?: Yes (2) Confusion Is this a current diagnosis for this admission?: Yes (3) Parkinson disease Is this a current diagnosis for this admission?: Yes (4) Pneumonia Qualifiers: Pneumonia type: due to unspecified organism Laterality: left Lung location: lower lobe of lung Qualified Code(s): J18.1 - Lobar pneumonia, unspecified organism Is this a current diagnosis for this admission?: Yes (5) Type 2 diabetes mellitus Qualifiers: Diabetes mellitus intermodal customer service insulin use: without halfway use Diabetes mellitus complication status: without complication Qualified Code(s): E11.9 - Type 2 diabetes mellitus without complications Is this a current diagnosis for this admission?: Yes (6) Dysphasia Is this a current diagnosis for this admission?: Yes Plan: Keep patient n.p.o. Cookie swallow in a.m. Patient likely has aspiration pneumonia (7) Leg swelling Is this a current diagnosis for this admission?: Yes Plan: DVT studies lower extremities were negative (8) Diabetes Qualifiers: Diabetes mellitus type: type 2 Is this a current diagnosis for this admission?: Yes - Time Time Spent with patient: We will continue present management with ceftriaxone and Zithromax Patient is oxygenating adequately on room air Will initiate IV fluids as he is n.p.o. Accu-Cheks every 6 hours Coverage with regular insulin Time Spent with patient: 25-34 minutes
[2018-02-08] MEDS ORDERED: ONDANSETRON HCL INJ/PF 4 MG/2 ML SDV IV PRN (13:30)
[2018-02-08] MEDS ORDERED: CYANOCOBALAMIN (VITAMIN B-12) INJ 1000 MCG/1 ML VIAL IM ONE (14:00)
[2018-02-08] MEDS: DOXYCYCLINE HYCLATE 100 MG in DEXTROSE 5%-WATER 250 ML IV SCH (14:54)
[2018-02-08] MEDS ORDERED: EPOETIN ALFA INJ 20,000 UNIT/1 ML VIAL (ONCOLOGY) SUBCUT ONE (19:00)
[2018-02-09] MEDS: DOXYCYCLINE HYCLATE 100 MG in DEXTROSE 5%-WATER 250 ML IV SCH ×2 (03:23→14:55)
[2018-02-09] MEDS: DOCUSATE SODIUM 100 MG CAPSULE PO SCH (10:01)
[2018-02-09] MEDS: CEFTRIAXONE SODIUM 1,000 MG in NORMAL SALINE 100 ML IV SCH (10:46)
[2018-02-09] MEDS: CYANOCOBALAMIN (VITAMIN B-12) INJ 1000 MCG/1 ML VIAL IM SCH (10:46)
[2018-02-09] MEDS: ENOXAPARIN SODIUM INJ 40 MG/0.4 ML DISP.SYRIN SUBCUT SCH (10:46)
[2018-02-09] MEDS: DEXTROSE 5%-1/2 NORMAL SALINE 1,000 ML IV PRN (12:26)
--- NOTE | 2018-02-09 12:31 | RADIOLOGY REPORT (SQ) ---
EXAM DESCRIPTION: COOKIE SWALLOW COMPLETED DATE/TIME: 02/09/2018 8:49 am REASON FOR STUDY: possible aspiration COMPARISON: Modified barium swallow 03/16/2014 TECHNIQUE: Videofluoroscopic swallowing examination was performed in conjunction with speech patholo gy. Videofluoroscopic imaging was obtained and reviewed and these are the findings: RADIATION DOSE: 1 minutes 43 seconds of fluoroscopy was used. 1 images saved to PACS. LIMITATIONS: None FINDINGS: The patient was brought into the fluoro room and placed upright on a modified barium swall ow chair. The patient was then given multiple consistencies mixed with barium to swallow under live fluoroscopic video guidance. According to the Speech Pathologist there was laryngeal penetration and aspiration of thin liquids. Penetration aspiration of post swallow residuals from the Piriforms. 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 IMPRESSION: LARYNGEAL PENETRATION AND ASPIRATION DESCRIBED.PLEASE SEE SPEECH PATHOLOGIST REPORT F OR OTHER FINDINGS AND RECOMMENDATIONS. COMMENT: Quality ID [id number]: Final reports for procedures using fluoroscopy that document radiation exp osure indices, or exposure time and number of fluorographic images (if radiation exposure indices are not available) TECHNICAL DOCUMENTATION: JOB ID: [id number] [employer]- All Rights Reserved Reading location - IP/workstation name: [facility]MERLY [facility], [id number]–1983
--- NOTE | 2018-02-09 15:10 | ST Inp Modified Barium Swallow ---
Medical Diagnosis - Medical Diagnoses Medical Diagnosis Description & ICD-10 Code(s): pneumonia, left lower lobe ST Inpatient [facility] [place] - General Date: 02/09/18 - History History Obtained From: Other - EMR -: Medical - Patient admitted with pneumonia, left lower lobe. He has a diagnosis of Parkinson's disease, and presented at bedside swallow study with significant coughing prior to PO trials, and wet breath sounds with trials. Medications: Medications Reviewed Allergies: Refer to medical record - Subjective Current Nutritional Means: NPO Current PO Diet: N/A (NPO) Current Symptoms: Coughing, Wet/gurgly voice, Pneumonia Pain: Patient reports, 0/5 - Objective Assessment: Upright, Left Lateral - Food Trials Food Trials Used: Thin liquids, Honey-thickened liquids, Pureed The Patient: Required Assist - Assessment Lingual Function: Within Normal Limits - Pharyngeal Stage Initiation of Pharyngeal Stage: Delayed Reflex Delay Time (seconds): 10 - after 10 seconds, patient was cued to swallow Pre-Swallowing Pooling in Valleculae: Moderate Pre-Swallowing Pooling in Pyriforms: Moderate Reduced Epiglottic Excursion: No Multiple Swallows With: Ineffective Clearance Post Swallow Residuals in Valleculae: Mild Post Swallow Residuals in Pyriforms: Moderate Post Swallow Residuals: throughout pharynx Pahryngeal Stage Comments: Very delayed swallow reflex seen consistently, frequently required verbal cue to initiate swallow. Patient had significant residue in pyriform sinus after the swallow, only partial clearance seen with second swallow. Aspiration of material from pyriform sinus seen. - Esophageal Stage Cricophageal Function: Impaired Esophageal Stage Comments: reduced UES opening for clearance of solid trials - Impression/Summary Laryngeal Penetration: Yes, during swallow Tracheal Aspiration: yes, delayed cough, during swallow - with thin liquids, after swallow - from residue of puree and honey thick liquids Effective Clearing: no Ineffective Compensatory Strategies: hard swallow Patient Presents With: Pharyngeal stage dysph., Severe Risk of Aspiration: Moderate Risk of Nutritional Compromise: Moderate Risk Due To: delayed swallow reflex and reduced clearing of pharyngeal residue - Recommendations NPO: yes Strict Aspitarion Precautions: Yes Dysphagia Therapy with CAR[employer] SUPERVISOR: Yes, Home Health Other Recommendations: Due to aspiration of multiple textures this day, no safe diet can be recommended. Therapist contacted physician regarding possible need for alternative means of hydration/nutrition. - Time Total Time: 20 Total Timed Minutes: 20
--- NOTE | 2018-02-09 17:16 | PDOC PROGRESS REPORT ---
Subjective Progress Note for:: 02/09/18 Subjective:: Failed MBS today. Continues to be NPO. Feeling "OK". Daughter and at bedside to discuss test results, status, and GOC. Reason For Visit: PNEUMONIA Physical Exam Vital Signs: Temp Pulse Resp BP Pulse Ox 97.8 F 96 20 150/81 H 99 02/09/18 15:37 02/09/18 15:37 02/09/18 15:37 02/09/18 15:37 02/09/18 15:37 Intake & Output 02/08/18 02/09/18 02/10/18 06:59 06:59 06:59 Intake Total 822 2950 Output Total 700 475 Balance 122 2475 Weight 70.4 kg 69.7 kg General appearance: PRESENT: no acute distress, thin, other - Chronically ill appearing male Mouth exam: PRESENT: dry mucosa Respiratory exam: PRESENT: decreased breath sounds, rhonchi Cardiovascular exam: PRESENT: +S1, +S2 GI/Abdominal exam: PRESENT: soft. ABSENT: tenderness Neurological exam: PRESENT: alert, awake Skin exam: PRESENT: dry, intact Results Laboratory Results: 02/08/18 05:46 02/08/18 05:46 02/09/18 04:24 Vitamin B12 > 1000.0 H Folate 10.90 Impressions: Head MRI 02/07/18 00:00 IMPRESSION: No acute abnormality in the brain. EVIDENCE OF ACUTE STROKE: NO. Chest X-Ray 02/07/18 10:24 IMPRESSION: Atelectasis or early pneumonia left lower lobe. Head CT 02/07/18 11:02 IMPRESSION: CHRONIC CHANGES OF ATROPHY AND MICROVASCULAR ISCHEMIA. NO ACUTE PROCESS. EVIDENCE OF ACUTE STROKE: NO. Venous Doppler Study 02/08/18 00:00 IMPRESSION: 1. No evidence of DVT or SVT in either leg. 2. Left-sided popliteal cyst. Modified Barium Swallow 02/09/18 08:00 IMPRESSION: LARYNGEAL PENETRATION AND ASPIRATION DESCRIBED.PLEASE SEE SPEECH PATHOLOGIST REPORT FOR OTHER FINDINGS AND RECOMMENDATIONS. Assessment & Plan - Diagnosis (1) At risk for aspiration Is this a current diagnosis for this admission?: Yes Plan: Known history of Parkinsons. Admitted for LLL PNA. Modified barium swallow today --> failed all textures and no safe diet was provided - Continue NPO - Discussed with patient and his family. Options at this point would be PEG tube vs. hospice - Will remain at risk even in PEG was placed (2) Goals of care, counseling/discussion Is this a current diagnosis for this admission?: Yes Plan: Long discussion today with patient and his family. Discussed next steps at this point including aggressive care like PEG tube placement vs. hospice - Patient's daughter is hospice nurse - Current Full code - Requesting palliative care consultation to continued GOC discussion with family - Counseled patient that a decision does nOT have to be made urgently. He understands. (3) Parkinson disease Is this a current diagnosis for this admission?: Yes Plan: Long standing, per above (4) Pneumonia Qualifiers: Pneumonia type: due to unspecified organism Laterality: left Lung location: lower lobe of lung Qualified Code(s): J18.1 - Lobar pneumonia, unspecified organism Is this a current diagnosis for this admission?: Yes Plan: Continue antibiotic therapy with Ceftriaxone and Doxycillin - Time Time Spent with patient: 35 or more minutes
--- NOTE | 2018-02-09 17:57 | EKG REPORT ---
SEVERITY:- ABNORMAL ECG - SINUS TACHYCARDIA CONSIDER POSTERIOR INFARCT : Confirmed by: Ernie Foster MD 09-Feb-2018 17:56:00
[2018-02-10] MEDS: DOXYCYCLINE HYCLATE 100 MG in DEXTROSE 5%-WATER 250 ML IV SCH ×2 (01:15→15:27)
[2018-02-10] MEDS: INSULIN REG, HUMAN 100 UNIT/ML 3 ML VIAL (PYX) SUBCUT PRN ×2 (06:36→22:35)
[2018-02-10 07:14] LABS: HEMATOCRIT 28.9 % (37.9-51.0); MEAN CORPUSCULAR HEMOGLOBIN 33.5 pg (27.0-33.4); MEAN CORPUSCULAR HGB CONC 34.5 g/dL (32.0-36.0); MEAN CORPUSCULAR VOLUME 97 fl (80-97); PLATELET COUNT 185 10^3/uL (150-450); RED BLOOD COUNT 2.98 10^6/uL (4.35-5.55); RED CELL DISTRIBUTION WIDTH 15.8 % (11.5-14.0); WHITE BLOOD COUNT 6.2 10^3/uL (4.0-10.5)
[2018-02-10 07:27] LABS: ANION GAP 10 (5-19); BLOOD UREA NITROGEN 16 mg/dL (7-20); CARBON DIOXIDE 25 mmol/L (22-30); CHLORIDE 104 mmol/L (98-107); GLUCOSE 201 mg/dL (75-110); POTASSIUM 3.7 mmol/L (3.6-5.0); SODIUM 139.1 mmol/L (137-145)
[2018-02-10] MEDS: CYANOCOBALAMIN (VITAMIN B-12) INJ 1000 MCG/1 ML VIAL IM SCH (11:03)
[2018-02-10] MEDS: DOCUSATE SODIUM 100 MG CAPSULE PO SCH (11:03)
[2018-02-10] MEDS: ENOXAPARIN SODIUM INJ 40 MG/0.4 ML DISP.SYRIN SUBCUT SCH (11:03)
[2018-02-10] MEDS: CEFTRIAXONE SODIUM 1,000 MG in NORMAL SALINE 100 ML IV SCH (11:03)
--- NOTE | 2018-02-10 13:39 | PDOC PROGRESS REPORT ---
Subjective Progress Note for:: 02/10/18 Subjective:: Feeling a little better. Reports being hungry. Daughter at bedside. They are no longer interested in PEG tube placement although like patient to be discharged on hospice after treatment for current pneumonia. They want palliative care instituted on patient able to eat at least pured diet at this time. No fever or chills, no chest pain or shortness of breath or palpitations. Reason For Visit: PNEUMONIA Physical Exam Vital Signs: Temp Pulse Resp BP Pulse Ox 99.6 F 106 H 18 135/76 H 96 02/10/18 11:18 02/10/18 11:18 02/10/18 11:18 02/10/18 11:18 02/10/18 11:18 Intake & Output 02/09/18 02/10/18 02/11/18 06:59 06:59 06:59 Intake Total 2950 1999 Output Total 475 Balance 2475 1999 Weight 69.7 kg 69.7 kg GEN: NAD, well-developed, elderly male CV: RRR, NL S1S2 LUNGS: Decreased breath sounds bases bilaterally ABDOMEN Soft, NT, +BS EXTERMITIES: No e/c/c NEURO: Alert, oriented Results Laboratory Results: 02/10/18 06:45 02/10/18 06:45 02/10/18 02/10/18 02/10/18 05:10 05:10 06:45 WBC Cancelled 6.2 RBC Cancelled 2.98 L Hgb Cancelled 10.0 L Hct Cancelled 28.9 L MCV Cancelled 97 MCH Cancelled 33.5 H MCHC Cancelled 34.5 RDW Cancelled 15.8 H Plt Count Cancelled 185 Sodium Cancelled Potassium Cancelled Chloride Cancelled Carbon Dioxide Cancelled Anion Gap Cancelled BUN Cancelled Creatinine Cancelled Est GFR ( Amer) Cancelled Est GFR (Non-Af Amer) Cancelled Glucose Cancelled Calcium Cancelled 02/10/18 06:45 WBC RBC Hgb Hct MCV MCH MCHC RDW Plt Count Sodium 139.1 Potassium 3.7 Chloride 104 Carbon Dioxide 25 Anion Gap 10 BUN 16 Creatinine 0.91 Est GFR ( Amer) > 60 Est GFR (Non-Af Amer) > 60 Glucose 201 H Calcium 10.0 Impressions: Head MRI 02/07/18 00:00 IMPRESSION: No acute abnormality in the brain. EVIDENCE OF ACUTE STROKE: NO. Chest X-Ray 02/07/18 10:24 IMPRESSION: Atelectasis or early pneumonia left lower lobe. Head CT 02/07/18 11:02 IMPRESSION: CHRONIC CHANGES OF ATROPHY AND MICROVASCULAR ISCHEMIA. NO ACUTE PROCESS. EVIDENCE OF ACUTE STROKE: NO. Venous Doppler Study 02/08/18 00:00 IMPRESSION: 1. No evidence of DVT or SVT in either leg. 2. Left-sided popliteal cyst. Modified Barium Swallow 02/09/18 08:00 IMPRESSION: LARYNGEAL PENETRATION AND ASPIRATION DESCRIBED.PLEASE SEE SPEECH PATHOLOGIST REPORT FOR OTHER FINDINGS AND RECOMMENDATIONS. Assessment & Plan - Plan Summary Plan Summary: Pneumonia Qualifiers: Pneumonia type: due to unspecified organism Laterality: left Lung location: lower lobe of lung Qualified Code(s): J18.1 - Lobar pneumonia, unspecified organism Is this a current diagnosis for this admission?: Yes Plan: Continue antibiotic therapy with Ceftriaxone and Doxycillin At risk for aspiration Is this a current diagnosis for this admission?: Yes Plan: Known history of Parkinsons. Admitted for LLL PNA. Modified barium swallow 02/09 --> failed all textures and no safe diet was provided -Patient hungry, elected hospice, will treat with pured diet with only thick liquid per patient and family's wishes. They do not want PEG tube or dobhoff tube at this time Goals of care, counseling/discussion Is this a current diagnosis for this admission?: Yes Plan: Patient and family did desire transition to hospice care. (3) Parkinson disease Is this a current diagnosis for this admission?: Yes Plan: Long standing.
[2018-02-10] MEDS: BRIMONIDINE TARTRATE 0.2% OPH SOLN 5 ML OU SCH (22:34)
[2018-02-10] MEDS: DEXTROSE 5%-1/2 NORMAL SALINE 1,000 ML IV PRN (22:34)
[2018-02-11] MEDS: DOXYCYCLINE HYCLATE 100 MG in DEXTROSE 5%-WATER 250 ML IV SCH (01:33)
[2018-02-11] MEDS: BRIMONIDINE TARTRATE 0.2% OPH SOLN 5 ML OU SCH ×3 (06:01→22:18)
[2018-02-11] MEDS: DOCUSATE SODIUM 100 MG CAPSULE PO SCH (10:13)
[2018-02-11] MEDS: CYANOCOBALAMIN (VITAMIN B-12) INJ 1000 MCG/1 ML VIAL IM SCH (10:13)
[2018-02-11] MEDS: CEFTRIAXONE SODIUM 1,000 MG in NORMAL SALINE 100 ML IV SCH (10:13)
[2018-02-11] MEDS: ENOXAPARIN SODIUM INJ 40 MG/0.4 ML DISP.SYRIN SUBCUT SCH (10:14)
[2018-02-11] MEDS: DOXYCYCLINE HYCLATE 100 MG in NORMAL SALINE 250 ML IV SCH (14:30)
--- NOTE | 2018-02-11 18:26 | PDOC PROGRESS REPORT ---
Subjective Progress Note for:: 02/11/18 Subjective:: Feeling a little better. Tolerating pureed diet. Again, patient and family are no longer interested in PEG tube placement. They would like patient to be discharged to home hospice after treatment for current pneumonia. They want palliative care instituted and for patient to be able to eat at least pured diet at this time. No fever or chills, no chest pain or shortness of breath or palpitations. Reason For Visit: PNEUMONIA Physical Exam Vital Signs: Temp Pulse Resp BP Pulse Ox 98.2 F 95 22 H 137/77 H 94 02/11/18 16:00 02/11/18 16:00 02/11/18 16:00 02/11/18 16:00 02/11/18 16:00 Intake & Output 02/10/18 02/11/18 02/12/18 06:59 06:59 06:59 Intake Total 1999 5910 1805 Output Total 150 Balance 1999 5760 1805 Weight 69.7 kg 69.5 kg GEN: NAD, well-developed, elderly male CV: RRR, NL S1S2 LUNGS: Decreased breath sounds bases bilaterally ABDOMEN Soft, NT, +BS EXTERMITIES: No e/c/c NEURO: Alert, oriented to name, hospital, family members; no acute weakness Results Laboratory Results: 02/10/18 06:45 02/10/18 06:45 Impressions: Head MRI 02/07/18 00:00 IMPRESSION: No acute abnormality in the brain. EVIDENCE OF ACUTE STROKE: NO. Chest X-Ray 02/07/18 10:24 IMPRESSION: Atelectasis or early pneumonia left lower lobe. Head CT 02/07/18 11:02 IMPRESSION: CHRONIC CHANGES OF ATROPHY AND MICROVASCULAR ISCHEMIA. NO ACUTE PROCESS. EVIDENCE OF ACUTE STROKE: NO. Venous Doppler Study 02/08/18 00:00 IMPRESSION: 1. No evidence of DVT or SVT in either leg. 2. Left-sided popliteal cyst. Modified Barium Swallow 02/09/18 08:00 IMPRESSION: LARYNGEAL PENETRATION AND ASPIRATION DESCRIBED.PLEASE SEE SPEECH PATHOLOGIST REPORT FOR OTHER FINDINGS AND RECOMMENDATIONS. Assessment & Plan - Plan Summary Plan Summary: Pneumonia Qualifiers: Pneumonia type: due to unspecified organism Laterality: left Lung location: lower lobe of lung Qualified Code(s): J18.1 - Lobar pneumonia, unspecified organism Is this a current diagnosis for this admission?: Yes Plan: Continue antibiotic therapy with Ceftriaxone and Doxycillin At risk for aspiration Is this a current diagnosis for this admission?: Yes Plan: Known history of Parkinsons. Admitted for LLL PNA. Modified barium swallow 02/09 --> failed all textures and no safe diet was provided -Patient hungry, elected hospice, will treat with pured diet with only thick liquid per patient and family's wishes. They do not want PEG tube or dobhoff tube at this time Goals of care, counseling/discussion Is this a current diagnosis for this admission?: Yes Plan: Patient and family did desire transition to hospice care. naval surface fire support planner working on this. Likely discharge home in a.m. with hospice. (3) Parkinson disease Is this a current diagnosis for this admission?: Yes Plan: Long standing.
[2018-02-11] MEDS: DEXTROSE 5%-1/2 NORMAL SALINE 1,000 ML IV PRN (19:04)
[2018-02-11] MEDS: INSULIN REG, HUMAN 100 UNIT/ML 3 ML VIAL (PYX) SUBCUT PRN (22:19)
--- NOTE | 2018-02-11 23:39 | Palliative Consultation Report ---
Consultation From:: ROSA MARIA JONES - [facility] HPI: Palliative Care consult visit 02/11/18 12:40 Pm Appreciate palliative care consult with this 82 year old man who suffers with Parkinson's disease and who was brought to hospital by his daughter on 02/07 because of increased weakness and mental status changes. He was found to have pneumonia and increased symptoms of Parkinsons disease. Laurent lives at home with his and his daughter who is an RN and has cared for him for many years. His is also having health problems. The daughter wants to take patient home with hospice support. Mr. Huang has not done well with his swallowing test and it showed no safe consistency for foods or fluids. However, due to his advanced PD, his daughter and have decided againes PEG tube at present. His daughter has had much anxiety over this decision but patient has always talked about quality of life and independence as being very important to him. Onset: Just prior to arrival Onset/Duration: Sudden Quality of Pain: No pain Pain Level: Denies Associated Symptoms: Productive cough, Shortness of breath Exacerbated by: Movement Relieved by: Remaining still Past Medical History(Consults) - General Information Source: Relative, [facility] Records Home Medications: Aspirin [Aspirin 325 mg Tablet] 325 mg PO MOWEFR@1000 01/26/13 Brimonidine Tartrate [Alphagan 0.2% Oph Soln 5 ml] 1 drop OU TID 10/17/13 Dexlansoprazole [Dexilant 60 mg Capsule] 60 mg PO DAILY 10/17/13 Dorzolamide HCl [Trusopt] 1 drop OU BID 10/17/13 Fluticasone Propionate [Flonase Nasal [place] 50 Mcg/[place] 16 gm] 1 spray NASL DAILY 10/17/13 [place]-3 Fatty Acids/Fish Oil [Fish Oil Softgel] 1 each PO DAILY 10/17/13 Carbidopa/Levodopa [Sinemet 25-100 mg Tablet] 1 tab PO QID 02/07/18 Cholecalciferol (Vitamin D3) [Vitamin D3 1000 Unit Tablet] 1,000 unit PO DAILY 02/07/18 Clopidogrel Bisulfate [Clopidogrel] 75 mg PO DAILY 02/07/18 Fenofibrate 160 mg PO DAILY 02/07/18 Finasteride [Finasteride] 5 mg PO DAILY 02/07/18 Insulin Regular, Human [Novolin R (Reg) Insulin 100 unit/mL] See Protocol SUBCUT MEALS 02/07/18 Midodrine HCl 10 mg PO TID 02/07/18 Tamsulosin HCl [Flomax] 0.4 mg PO DAILY 02/07/18 Allergies/Adverse Reactions: [id number] Reductase Inhibitor Allergy (Verified 02/07/18 10:49) - Social History Lives with: Family Family History: Reviewed & Not Pertinent Parental Family History Reviewed: No Children Family History Reviewed: No Sibling(s) Family History Reviewed.: No Smoking Status: Former Smoker Frequency of Alcohol Use: None Hx Prescription Drug Abuse: No - Past Medical History Cardiac Medical History: Reports: Hx Congestive Heart Failure, Hx Coronary Artery Disease, Hx Hypercholesterolemia, Hx Hypertension Denies: Hx Heart Attack Pulmonary Medical History: Reports: Hx COPD Denies: Hx Asthma, Hx Bronchitis, Hx Pneumonia Neurological Medical History: Reports: Other - PARKINSON'S DISEASE. 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 Denies: Hx Peritoneal Dialysis Malignancy Medical History: Reports None GI Medical History: Reports: Hx Gastroesophageal Reflux Disease. Denies: Hx Hepatitis, Hx Hiatal Hernia, Hx Ulcer Musculoskeltal Medical History: Reports Hx Arthritis Psychiatric Medical History: Reports: Hx Dementia Denies: Hx Depression Infectious Medical History: Denies: Hx Hepatitis Hematology: Denies: Anemia, Sickle Cell Disease - Surgical History Surgical Hx: Negative Past Surgical History: Denies: Hx Open Heart Surgery, Hx Pacemaker Review of systems Constitutional: Weakness Cardiovascular: No symptoms reported Respiratory: No symptoms reported Gastrointestinal: Poor appetite Geniturinary: Frequency, Incontinence Musculoskeltal: Muscle stiffness Skin: No symptoms reported Neurological/Psychological: Dementia Ojective:Exam Vital Signs: Temp Pulse Resp BP Pulse Ox 98.7 F 92 18 128/77 H 96 02/11/18 19:45 02/11/18 19:45 02/11/18 19:45 02/11/18 19:45 02/11/18 19:45 Intake & Output 02/10/18 02/11/18 02/12/18 06:59 06:59 06:59 Intake Total 1999 5919 1905 Output Total 150 325 Balance 1999 5760 1580 Weight 69.7 kg 69.5 kg - General General Appearance: Alert In distress: None Note:: Answered simple questions appropriately, but anything in depth or related to place elicited confused answers. Laurent says he is hungry but ate only a few bites. No choking noted while eating. Some "clearing of throat" after eating, but drank little fluids and pureed foods very thick. - HEENT Head: Normocephalic Eyes: Normal Mouth/Lips: Normal Mucous membrane: Moist - Respiratory Breath sounds: Rhonchi - Cardiovascular Rhythm: Regular Heart Sounds: Normal auscultation - Abdominal Inspection: Normal Distension: No distension Tenderness: Nontender - Neurological Cognition: Normal, Confused - Confused to place Orientation: Oriented to person Speech: Normal - Psychological Associated symptoms: Normal affect, Anxious, Decreased appetite Objective-Diagnostic Laboratory: 02/10/18 06:45 02/10/18 06:45 Plan and Recommendation Plan and Recommendation: Plan is for patient to be discharged tomorrow with hospice. Talked with daughter to support. She is having some anxiety about decisions, but understands that patient may get better when he gets home and return to baseline , or he may continue to decline, but feeding tube would not alter outcome of Parkinsons disease. She has little help with patients care and does have to continue to work, She is making plans for patients care while she is at work. Her mother is able to help some. Daughter states she will get DNR from hospice and we discussed other options for care that she is considering when patient arrives home. SHe is comfortable caring for him and is expecting hospital bed to be delivered today. Will follow for support after discharge. - Time Spent with Patient Time spent with patient: 15 to 30 Minutes - Total 30 minutes time.
[2018-02-12] MEDS: DOXYCYCLINE HYCLATE 100 MG in NORMAL SALINE 250 ML IV SCH (03:38)
[2018-02-12] MEDS: BRIMONIDINE TARTRATE 0.2% OPH SOLN 5 ML OU SCH (05:27)
[2018-02-12 09:13] VITALS: BP 132/81
--- NOTE | 2018-02-12 19:28 | PDOC DISCHARGE SUMMARY ---
General - Admit/Disc Date/PCP Admission Date/Primary Care Provider: 02/07/18 12:54 Discharge Date: 02/12/18 - Additional Information Resuscitation Status: Full Code Discharge Diet: Other (Comments) Discharge Activity: Other Home Medications: Aspirin [Aspirin 325 mg Tablet] 325 mg PO MOWEFR@1000 01/26/13 Brimonidine Tartrate [Alphagan 0.2% Oph Soln 5 ml] 1 drop OU TID 10/17/13 Dexlansoprazole [Dexilant 60 mg Capsule] 60 mg PO DAILY 10/17/13 Dorzolamide HCl [Trusopt] 1 drop OU BID 10/17/13 Fluticasone Propionate [Flonase Nasal [place] 50 Mcg/[place] 16 gm] 1 spray NASL DAILY 10/17/13 [place]-3 Fatty Acids/Fish Oil [Fish Oil Softgel] 1 each PO DAILY 10/17/13 Carbidopa/Levodopa [Sinemet 25-100 mg Tablet] 1 tab PO QID 02/07/18 Cholecalciferol (Vitamin D3) [Vitamin D3 1000 Unit Tablet] 1,000 unit PO DAILY 02/07/18 Clopidogrel Bisulfate [Clopidogrel] 75 mg PO DAILY 02/07/18 Fenofibrate 160 mg PO DAILY 02/07/18 Finasteride [Finasteride] 5 mg PO DAILY 02/07/18 Insulin Regular, Human [Novolin R (Reg) Insulin 100 unit/mL] See Protocol SUBCUT MEALS 02/07/18 Midodrine HCl 10 mg PO TID 02/07/18 Tamsulosin HCl [Flomax] 0.4 mg PO DAILY 02/07/18 History of Present Illness History of Present Illness: Patient admitted on 02/07/18 on presenting as in HPI below: " LEN CHOW is a 82 year old male moderate to severe Parkinson's disease who presented to the emergency department with weakness and mild confusion. He was brought in by EMS. His daughter provided a history. She says that he seemed pale and more unsteady yesterday. He mentioned to her that his knee hurt yesterday. He has a lift chair at home that he frequently sits in. He was found this morning on his knees in front of the chair in the lifted position. It appeared as if he slid out on to the floor onto his knees. He was unable to get off the floor. At the same time, he told his daughter that he was in his office, but actually they were in the living room. At that time, he asked his daughter if "someone" moved his glucometer from his office. Again he was in the living room. The glucometer was in the kitchen, where he left the evening before. He has a chronic cough. He frequently clears his throat. The cough is essentially dry. He reports daughter did not report fevers, chills , chest pain, or shortness of breath. He and his live with his daughter, who is a hospice nurse. " Evaluation significant for atelectasis or early pneumonia left lower lobe on chest x-ray, head CT with no acute process. Hospital Course Hospital Course: Patient was thought to have pneumonia. He was admitted and managed as follows: Pneumonia Qualifiers: Pneumonia type: due to unspecified organism Laterality: left Lung location: lower lobe of lung Qualified Code(s): J18.1 - Lobar pneumonia, unspecified organism Is this a current diagnosis for this admission?: Yes Plan: Treated with antibiotic therapy with Ceftriaxone and Doxycillin. Doing better with some improvement in mental status. No fever or chills. He continues to clear his throat. At risk for aspiration Is this a current diagnosis for this admission?: Yes Plan: Known history of Parkinsons. Admitted for LLL PNA. Modified barium swallow 02/09 --> failed all textures and no safe diet was provided. -Patient reported being hungry, elected hospice, patient and family did not want PEG tube. He was started on pured diet with only thick liquid per patient and family's wishes and he tolerated this. (3) Parkinson disease Is this a current diagnosis for this admission?: Yes Plan: Long standing. Patient was seen by palliative care and is being discharged to home with hospice. Physical Exam Vital Signs: Temp Pulse Resp BP Pulse Ox 98.2 F 94 17 132/81 H 97 02/12/18 09:09 02/12/18 09:09 02/12/18 09:09 02/12/18 09:09 02/12/18 09:09 Intake & Output 02/11/18 02/12/18 02/13/18 06:59 06:59 06:59 Intake Total 5910 2855 Output Total 150 525 Balance 5760 2330 Weight 69.5 kg 69.5 kg GEN: NAD, well-developed, elderly male CV: RRR, NL S1S2 LUNGS: Decreased breath sounds bases bilaterally ABDOMEN Soft, NT, +BS EXTERMITIES: No e/c/c NEURO: Alert, oriented to name, hospital, family members; patient with generalized weakness Results Laboratory Results: 02/10/18 06:45 02/10/18 06:45 Impressions: Head MRI 02/07/18 00:00 IMPRESSION: No acute abnormality in the brain. EVIDENCE OF ACUTE STROKE: NO. Chest X-Ray 02/07/18 10:24 IMPRESSION: Atelectasis or early pneumonia left lower lobe. Head CT 02/07/18 11:02 IMPRESSION: CHRONIC CHANGES OF ATROPHY AND MICROVASCULAR ISCHEMIA. NO ACUTE PROCESS. EVIDENCE OF ACUTE STROKE: NO. Venous Doppler Study 02/08/18 00:00 IMPRESSION: 1. No evidence of DVT or SVT in either leg. 2. Left-sided popliteal cyst. Modified Barium Swallow 02/09/18 08:00 IMPRESSION: LARYNGEAL PENETRATION AND ASPIRATION DESCRIBED.PLEASE SEE SPEECH PATHOLOGIST REPORT FOR OTHER FINDINGS AND RECOMMENDATIONS. Qualifiers - * PATEINT BEING DISCHARGED WITH ANY OF THE FOLLOWING DIAGNOSIS?: No
== END 2018-02-12 09:55 | disposition hospice, home (50) | DRG 195 ==
LOC: ER 10:11 → EH 12:54 → 4W 14:24
PROVIDERS: ADMIT Family Medicine; ATTEND Family Medicine
PROC: 3E0F73Z Introduction of Anti-inflammatory into Respiratory Tract, Via Natural or Artificial Opening (ICD-10-PCS; principal; 2018-02-08)
DX: J18.1 Lobar pneumonia, unspecified organism (principal); G20 Parkinson's disease; Z51.5 Encounter for palliative care; I50.9 Heart failure, unspecified; I25.10 Atherosclerotic heart disease of native coronary artery without angina pectoris; E78.00 Pure hypercholesterolemia, unspecified; I11.0 Hypertensive heart disease with heart failure; J44.9 Chronic obstructive pulmonary disease, unspecified; E11.9 Type 2 diabetes mellitus without complications; K21.9 Gastro-esophageal reflux disease without esophagitis; M19.90 Unspecified osteoarthritis, unspecified site; F02.80 Dementia in other diseases classified elsewhere, unspecified severity, without behavioral disturbance, psychotic disturbance, mood disturbance, and anxiety; D63.8 Anemia in other chronic diseases classified elsewhere; R47.02 Dysphasia; D51.9 Vitamin B12 deficiency anemia, unspecified; M71.22 Synovial cyst of popliteal space [Baker], left knee; Z79.82 Long term (current) use of aspirin; Z87.891 Personal history of nicotine dependence; Z79.4 Long term (current) use of insulin; Z79.899 Other long term (current) drug therapy
CPT/HCPCS: 36415; 70450; 70551; 71046; 74230; 80048; 80053; 81001; 82550; 82553; 82607; 82746; 82962; 83605; 83735; 83880; 84100; 84443; 84484; 85025; 85027; 87040; 93005; 93010; 93970; 96365; 99285; G8978-GP; G8979-GP; G8996-GN; G8997-GN; J0696; J0885; J1650; J1815; J3420; J3490; J7030; J7050; J7060; J7620